=== PATIENT | female | born 1960 | race Caucasian/White ===

== ENCOUNTER 2023-12-03 08:59 | Day surgery (SDC) | payer MEDICARE ==
[~2023-12-03 08:59] MED LIST: Metoclopramide 10 MG/2 ML SDV IV PRN
[2023-12-03] MEDS: Sodium Chloride 0.9% 1,000 ML IV SCH (09:24)
[2023-12-03] MEDS ORDERED: Propofol 200 MG/20 ML SDV ONE (10:15)
[2023-12-03] MEDS ORDERED: Lidocaine 1% 30 ML SDV ONE (10:15)
== END 2023-12-03 11:29 | disposition home or self-care (01) ==
LOC: LB.SDS 08:59
PROVIDERS: ATTEND Surgery
DX: Z12.11 Encounter for screening for malignant neoplasm of colon (principal); K64.2 Third degree hemorrhoids
CPT/HCPCS: J2704; J7030